=== PATIENT | female | born 2000 | race Caucasian/White ===

== ENCOUNTER 2022-04-30 08:12 | Emergency (ER) | payer OTHER, SELFPAY ==
[2022-04-30 08:19] VITALS: BP 117/73; PULSE 83; RESP 18; TEMP 36.3; O2SAT 97; BMI 28.7
--- NOTE | 2022-04-30 08:41 | ED_ITS ---
HPI - General Adult General Chief complaint: Ear/Nose/Throat Problem Stated complaint: EAR PAIN, SORE THROAT, HEADPRESSURE Time Seen by Provider: 04/30/22 08:27 History of Present Illness HPI narrative: This 21-year-old female comes in with onset of symptoms yesterday including sore throat, ear pain, cough, and generalized malaise. She has not had any fevers. She does not report any shortness of breath. She also has some purulent drainage from both eyes. Related Data Home Medications Medication Instructions Recorded Confirmed albuterol sulfate 90 mcg/actuation inhalation 04/30/22 aerosol inhaler (Ventolin HFA) escitalopram oxalate 10 mg tablet mg 04/30/22 lisdexamfetamine 50 mg capsule mg 04/30/22 (Vyvanse) lorazepam 0.5 mg tablet mg 04/30/22 trazodone 100 mg tablet mg 04/30/22 Previous Rx's Medication Instructions Recorded amoxicillin 500 mg capsule 500 mg PO TID 10 days #30 caps 04/30/22 polymyxin B sulfate 10,000 1 drp ophthalmic (eye) Q3H 7 days 04/30/22 unit-trimethoprim 1 mg/mL eye #10 mL drops (Polytrim) Allergies Allergy/AdvReac Type Severity Reaction Status Date / Time No Known Drug Allergies Allergy Verified 04/30/22 08:28 Review of Systems Status of ROS: Reports: 10 or more systems reviewed and unremarkable except as noted in History and below Narrative: Constitutional: No fevers, no weight gain or loss. Eyes: No vision changes. Matting in both eyes as described above. HENT: Nasal congestion, sore throat, and bilateral ear pain, left greater than right. Cardiovascular: No chest pain, no palpitations. Respiratory: No shortness of breath, no wheezes. Occasional cough. Gastrointestinal: No abdominal pain, no vomiting, no diarrhea. Genitourinary: No dysuria, no hematuria. Musculoskeletal: Normal range of motion. Skin: No rashes, no pruritis. Neurological: No dizziness, weakness, sensory change, speech change. Endo/Heme/Allergies: No bruising or bleeding. No polydipsia. Pysch: no suicidality, no anxiety, no insomnia. All other systems reviewed and are negative. [facility] Medical History (Updated 04/30/22 @ 08:44 by Richie Alicia MD) Anxiety Asthma Depression Eating disorder Hypermobile joint syndrome of ankle Insomnia Social History Smoking Status: Never smoker Do you use any of these nicotine containing products: None Second hand tobacco smoke exposure: No How often do you have a drink containing alcohol: monthly or less How many standard drinks containing alcohol do you have on a typical day: 1 or 2 How often do you have six or more drinks on one occasion: Never AUDIT-C Alcohol total score: 1 Non-prescribed substance use: denies use service: No Exam Narrative: Exam Narrative: Constitutional: Well-developed, well-nourished, no acute distress. HEENT: Normocephalic, atraumatic. Oropharynx has mild to moderate bilateral tonsillar hypertrophy without exudate. Tympanic membrane on the right appears normal. Left tympanic membrane has bulging with purulence. Neck: Normal range of motion. Nontender. Supple. Heart: Intact distal pulses. Lungs: No chest discomfort. No wheezes, rhonchi, or rales. Abdomen: Nontender. Back: Normal range of motion. Extremities: Normal range of motion. No injury. Skin: Intact. No rash. Warm. No erythema or pallor. Neurologic: No altered sensation. No weakness. Alert and oriented. Psychiatric: No suicidality. No anxiety or depression. No insomnia. Nursing notes and vitals signs are reviewed. Const: Vital Signs, click to edit/add: Vital Signs - 24 hr 04/30/22 08:19 Temperature 97.3 F L Pulse Rate [Right Pulse Oximeter] 83 Respiratory Rate 18 Blood Pressure [Ri ght Upper Arm] 117/73 Pulse Oximetry 97 Oxygen Delivery Me thod Room Air Course Vital Signs Vital signs: Initial Vital Signs Temperature 97.3 F L 04/30/22 08:19 Temperature Source Temporal Artery Scan 04/30/22 08:19 Pulse Rate 83 04/30/22 08:19 Pulse Rhythm 04/30/22 08:19 Respiratory Rate 18 04/30/22 08:19 Blood Pressure 117/73 04/30/22 08:19 Blood Pressure Mean 87 04/30/22 08:19 Blood Pressure Position Sitting 04/30/22 08:19 Pulse Oximetry 97 04/30/22 08:19 Oxygen Delivery Method 04/30/22 08:19 Vital Signs Temperature 97.3 F L 04/30/22 08:19 Pulse Rate 83 04/30/22 08:19 Respiratory Rate 18 04/30/22 08:19 Blood Pressure 117/73 04/30/22 08:19 Pulse Oximetry 97 04/30/22 08:19 Oxygen Delivery Method 04/30/22 08:19 Temperature 97.3 F L 04/30/22 08:19 Pulse Rate 83 04/30/22 08:19 Respiratory Rate 18 04/30/22 08:19 Blood Pressure 117/73 04/30/22 08:19 Pulse Oximetry 97 04/30/22 08:19 Oxygen Delivery Method 04/30/22 08:19 Medical Decision Making MDM Narrative Medical decision making narrative: This patient has upper respiratory symptoms with significant findings of left otitis media and bilateral conjunctivitis. Prescriptions for amoxicillin and Polytrim are provided. Discharge Plan Discharge Clinical Impression: Conjunctivitis, Otitis media Patient Disposition: Home, Self-Care Condition: Stable Instructions: Ear Infection (ED) Additional Instructions: Take medication as prescribed. Follow up with MD or return if worsening. Prescriptions: New amoxicillin 500 mg capsule 500 mg PO TID 10 Days Qty: 30 0RF polymyxin B sulf-trimethoprim [Polytrim] 10,000 unit- 1 mg/mL drops 1 drp ophthalmic (eye) Q3H 7 Days Qty: 10 0RF Rx Instructions: while awake; do not exceed 6 doses in 24 hours No Action lorazepam 0.5 mg tablet trazodone 100 mg tablet albuterol sulfate [Ventolin HFA] 90 mcg/actuation HFA aerosol inhaler INHALATION escitalopram oxalate 10 mg tablet Vyvanse 50 mg capsule Stand Alone Forms: [facility]
== END 2022-04-30 09:41 | disposition home or self-care (01) ==
LOC: ED 09:13
PROVIDERS: Emergency Provider Emergency Medicine Emergency Medical Services
DX: H10.023 Other mucopurulent conjunctivitis, bilateral (principal); H66.92 Otitis media, unspecified, left ear
CPT/HCPCS: 99283; 99284